=== PATIENT | male | born 1950 | race Caucasian/White ===

== ENCOUNTER 2016-10-27 16:12 | Emergency (ER) | payer MEDICARE, BC ==
--- NOTE | 2016-10-27 16:55 | UC ---
Ear Complaint HPI - HPI Summary HPI Summary: c/o left ear pain, also noted on triage BP was high, patient has no symptoms, head aches, SOB, Chest pain, no edema - History of Current Complaint Chief Complaint: UCEar Stated Complaint: LEFT EAR ACHE Time Seen by Provider: 10/27/16 16:53 Hx Obtained From: Patient Onset/Duration: Sudden Onset - of ear pain, Lasting Hours Severity Initially: Moderate Severity Currently: Moderate Pain Intensity: 6 Pain Scale Used: 0-10 Numeric Aggravating Factors: Nothing Alleviating Factors: Nothing Associated Signs/Symptoms: Positive: Hearing Loss - Allergies/Home Medications Allergies/Adverse Reactions: Allergies Allergy/AdvReac Type Severity Reaction Status Date / Time No Known Allergies Allergy Verified 10/27/16 16:24 Home Medications: Home Medications Coenzyme Q10 (Ubidecarenone) [Co Q-10] 1 cap PO DAILY 10/27/16 [History Confirmed 10/27/16] Multiple Vitamin [Multivitamins] 1 cap PO DAILY 10/27/16 [History Confirmed ] Tumeric 1 cap PO DAILY 10/27/16 [History Confirmed 10/27/16] PMH/Surg Hx/FS Hx/Imm Hx Previously Healthy: Yes - Surgical History Surgical History: Yes Surgery Procedure, Year, and Place: Stents - Family History Known Family History: Positive: None - Social History Occupation: Retired Lives: With Family Alcohol Use: Occasionally Substance Use Type: None Smoking Status (MU): Never Smoked Tobacco Review of Systems Constitutional: Negative Skin: Negative Eyes: Negative ENT: Ear Ache - left Respiratory: Negative Cardiovascular: Negative Gastrointestinal: Negative Genitourinary: Negative Motor: Negative Neurovascular: Negative Musculoskeletal: Negative Neurological: Negative Psychological: Negative Is Patient Immunocompromised?: No All Other Systems Reviewed And Are Negative: Yes Physical Exam Triage Information Reviewed: Yes Appearance: Well-Appearing, No Pain Distress, Well-Nourished Vital Signs: Initial Vital Signs Temp 98.0 F 10/27/16 16:19 Pulse 87 10/27/16 16:19 Resp 12 10/27/16 16:19 BP 186/114 10/27/16 16:19 Pulse Ox 100 10/27/16 16:19 Vital Signs Reviewed: Yes Eye Exam: Normal Eyes: Positive: Conjunctiva Clear ENT Exam: Normal ENT: Positive: Normal ENT inspection, Hearing grossly normal, Pharynx normal, TMs normal - right, Other: - cerumen impaction left. Negative: Nasal congestion , Nasal drainage, Tonsillar swelling, Tonsillar exudate, Trismus, Muffled/ hoarse voice Dental Exam: Normal Neck exam: Normal Neck: Positive: Supple, Nontender Respiratory Exam: Normal Respiratory: Positive: Chest non-tender, Lungs clear, Normal breath sounds, No respiratory distress, No accessory muscle use Cardiovascular Exam: Normal Cardiovascular: Positive: RRR, No Murmur, Pulses Normal, Brisk Capillary Refill Musculoskeletal Exam: Normal Musculoskeletal: Positive: Strength Intact, ROM Intact, No Edema Neurological Exam: Normal Neurological: Positive: Alert, Muscle Tone Normal Psychological Exam: Normal Skin Exam: Normal Re-Evaluation - Re-Evaluation First Eval Change: Improved - eAR PAIN RESOLVED AFTER FLUSED BP DOWN TO 178/104 AFTER LOPERSSOR 50 MG Ear Complaint Course/Dx - Course Course Of Treatment: LOPRESSOR 1 PO QD FOLLOW WITH PCP ON monday WHEN RETURNING TO [facility] OR RETURN TO URGENT CARE OR ED FOR ANY FURTHER PROBLEMS - Differential Dx/Diagnosis Differential Diagnosis/HQI/PQRI: Cerumen Impaction, Otitis Externa, Otitis Media , Other Provider Diagnoses: Hypertension, Left ear Cerumen impaction (resolved) Discharge - Discharge Plan Condition: Stable Disposition: HOME Prescriptions: Metoprolol Tartrate TAB* [Lopressor TAB*] 50 mg PO BEDTIME #14 tab Patient Education Materials: Cerumen Impaction (ED), DASH Eating Plan (ED), Hypertension (ED) Referrals: No Primary Care Phys,NOPCP [Primary Care Provider] - Additional Instructions: Follow with you primary care doctor in the next one to two weeks
[2016-10-27] MEDS ORDERED: Metoprolol Tartrate TAB* 50 mg PO ONE (17:34)
[2016-10-27 17:37] VITALS: BP 230/124
== END 2016-10-27 18:35 | disposition home or self-care (01) ==
LOC: UCEAST 16:12
DX: H61.22 Impacted cerumen, left ear (principal); I10 Essential (primary) hypertension
CPT/HCPCS: 99203; A9270-GY; G0463